=== PATIENT | male | born 1985 | race African-American/Black ===

== ENCOUNTER 2018-07-18 10:51 | Emergency (ER) | payer SELFPAY ==
[2018-07-18 10:57] VITALS: BMI 28.0
--- NOTE | 2018-07-18 11:30 | PDOC ---
*Physical Exam - Vital Signs Last Vital Signs Temp Pulse Resp BP Pulse Ox 98 F 64 18 143/85 100 07/18/18 10:54 07/18/18 10:54 07/18/18 10:54 07/18/18 10:54 07/18/18 10:54 ED Treatment Course - LABORATORY CBC & Chemistry Diagram: 07/18/18 12:00 07/18/18 13:13 Medical Decision Making - Medical Decision Making 07/18/18 11:30 Pt seen by Midlevel Provider under my direct supervision Pt interviewed and examined Ancillary studies reviewed I agree with plan as outlined by Midlevel Provider *DC/Admit/Observation/Transfer Diagnosis at time of Disposition: Chest pain - Discharge Dispostion Disposition: HOME Condition at time of disposition: Improved - Referrals - Patient Instructions Printed Discharge Instructions: DI for Atypical Chest Pain Additional Instructions: If symptoms persist, please follow-up with your PMD Return to ER for worsening of symptoms - Post Discharge Activity
--- NOTE | 2018-07-18 11:36 | PDOC ---
History of Present Illness - General Chief Complaint: Pain Stated Complaint: CHEST PAIN Time Seen by Provider: 07/18/18 11:19 History Source: Patient - History of Present Illness Presenting Symptoms: Chest Pain, Short of Breath Timing/Duration: reports: intermittent Past History - Past Medical History Allergies/Adverse Reactions: Allergies Allergy/AdvReac Type Severity Reaction Status Date / Time No Known Allergies Allergy Verified 07/18/18 10:57 Home Medications: Ambulatory Orders NK [No Known Home Medication] 07/18/18 COPD: No - Surgical History Appendectomy: Yes - Suicide/Smoking/Psychosocial Hx Smoking History: Never smoked Review of Systems - Review of Systems Constitutional: No: Chills, Fever Respiratory: Yes: Shortness of Breath. No: Cough Cardiac (ROS): Yes: Chest Pain, Lightheadedness. No: Palpitations, Syncope ABD/GI: No: Nausea, Vomiting Neurological: Yes: Dizziness. No: Headache, Numbness, Tingling, Weakness *Physical Exam - Vital Signs Last Vital Signs Temp Pulse Resp BP Pulse Ox 98.1 F 61 15 144/84 100 07/18/18 14:54 07/18/18 14:54 07/18/18 14:54 07/18/18 14:54 07/18/18 14:54 - Physical Exam General Appearance: Yes: Appropriately Dressed. No: Apparent Distress HEENT: positive: Normal Voice Neck: positive: Supple, Other (no bruit over carotids) Respiratory/Chest: positive: Lungs Clear, Normal Breath Sounds. negative: Respiratory Distress Cardiovascular: positive: Regular Rate, S1, S2 Gastrointestinal/Abdominal: positive: Soft. negative: Tender Extremity: negative: Pedal Edema Integumentary: positive: Dry, Warm Neurologic: positive: Fully Oriented, Alert, Normal Mood/Affect Heart Score/ECG Review - ECG Intrepretation Rhythm: Regular Rhythm - [place] Comment: 07/18/18 11:38 Possible early repolarization No acute ST/T wave changes - P and NM Prominent R with upright T in V1 (true posterior CO): No Delta Wave(s) Present: No WPW: No ED Treatment Course - LABORATORY CBC & Chemistry Diagram: 07/18/18 12:00 07/18/18 13:13 - ADDITIONAL ORDERS Additional order review: Laboratory Results 07/18/18 07/18/18 07/18/18 13:13 13:13 12:00 Sodium 139 Cancelled Potassium 4.5 Cancelled Chloride 103 Cancelled Carbon Dioxide 32 Cancelled Anion Gap 4 L Cancelled BUN 8 Cancelled Creatinine 1.2 Cancelled Creat Clearance w eGFR > 60 Cancelled Random Glucose 83 Cancelled Calcium 9.6 Cancelled Total Bilirubin 0.6 Cancelled AST 36 Cancelled ALT 68 Cancelled Alkaline Phosphatase 89 Cancelled Creatine Kinase 212 Cancelled Creatine Kinase Index 0.4 CK-MB (CK-2) < 1.00 Troponin I < 0.02 Cancelled Total Protein 8.3 H Cancelled Albumin 4.5 Cancelled 07/18/18 12:00 RBC 4.78 MCV 92.5 MCHC 32.9 RDW 13.0 MPV 10.2 Neutrophils % 50.6 Lymphocytes % 32.6 Monocytes % 14.3 H Eosinophils % 1.4 Basophils % 1.1 - RADIOLOGY Radiology Studies Ordered: Category Date Time Status CHEST PA & LAT [RAD] Stat Radiology 07/18/18 11:27 Taken Medical Decision Making - Medical Decision Making 07/18/18 11:31 33-year-old male, no significant history, here with chest pain. Patient reports that for the past several weeks has had intermittent burning pain to substernal area and left chest, worse with food and sometimes with movement. [facility] 1 week ago he was seen in the ER in [place] where he resides with unremarkable workup. [facility] he has not yet had a chance to see his PMD as he is currently in [place] visiting an aunt. [facility] he decided to come to ED today because over the weekend, felt similar chest pain that appears to be improved. Now complaining of some discomfort to left neck and possibly shortness of breath though. Denies diaphoresis, nausea, vomiting, palpitations , leg pain or swelling, headache, vertigo, visual changes, focal weakness or syncope. No illicit drug use, tob use or significant family history. No obvious RF for DVT/PE. No h/o anxiety See exam CP Recurrent Neg w/u in outside ED 1 week ago in [place] No iilicit drug use, tob use or sig fmhx No RF for DVT/PE ?anxiety component Stable and well thom w/ unremarkable exam -ekg -cxr -labs w/ 1 trop given duration of sxs -anticipate dc w/ cards f/u 07/18/18 15:21 Workup negative in ER. Patient reports feeling better at this time. Well- appearing and stable and currently eating a sandwich. Will discharge to follow- up with his PMD over the next week. Reasons to return to ER discussed with patient *DC/Admit/Observation/Transfer Diagnosis at time of Disposition: Chest pain Qualifiers: Chest pain type: chest pain on breathing Qualified Code(s): R07.1 - Chest pain on breathing; R07.81 - Pleurodynia - Discharge Dispostion Disposition: HOME Condition at time of disposition: Improved - Referrals - Patient Instructions Printed Discharge Instructions: DI for Atypical Chest Pain Additional Instructions: If symptoms persist, please follow-up with your PMD Return to ER for worsening of symptoms - Post Discharge Activity
[2018-07-18 12:04] LABS: BASO % 1.1 % (0-2.0); EOS % 1.4 % (0-4.5); HEMATOCRIT 44.2 % (35.4-49); HEMOGLOBIN 14.6 GM/dL (11.7-16.9); LYMPH % 32.6 % (8-40); MCH 30.5 pg (25.7-33.7); MCHC 32.9 g/dl (32.0-35.9); MEAN CELL VOLUME 92.5 fl (80-96); MEAN PLT VOLUME 10.2 fl (7.5-11.1); MONO % 14.3 % (3.8-10.2); NEUT % 50.6 % (42.8-82.8); PLATELET COUNT 157 K/MM3 (134-434); RBC 4.78 M/mm3 (4.00-5.60); WHITE BLOOD COUNT 3.3 K/mm3 (4.0-10.0)
[2018-07-18 13:59] LABS: ALBUMIN 4.5 g/dl (3.4-5.0); ALK PHOS 89 U/L (45-117); ANION GAP 4 MMOL/L (8-16); BILIRUBIN,TOTAL 0.6 mg/dL (0.2-1.0); BLOOD UREA NITROGEN 8 mg/dL (7-18); CALCIUM 9.6 mg/dL (8.5-10.1); CHLORIDE 103 mmol/L (98-107); CO2 32 mmol/L (21-32); CREATININE 1.2 mg/dL (0.7-1.3); GLUCOSE,RANDOM 83 mg/dL (74-106); POTASSIUM 4.5 mmol/L (3.5-5.1); SGOT/AST 36 U/L (15-37); SGPT/ALT 68 U/L (12-78); SODIUM 139 mmol/L (136-145); TOT PROT 8.3 g/dl (6.4-8.2)
[2018-07-18 14:55] VITALS: PULSE 61; TEMP 98.1
[2018-07-18 15:58] VITALS: BP 135/91
--- NOTE | 2018-07-19 13:46 | EKG ---
Test Reason : Blood Pressure : / mmHG Vent. Rate : 060 BPM Atrial Rate : 060 BPM P-R Int : 156 ms QRS Dur : 084 ms QT Int : 390 ms P-R-T Axes : 041 080 026 degrees QTc Int : 390 ms NORMAL SINUS RHYTHM MINIMAL VOLTAGE CRITERIA FOR LVH, MAY BE NORMAL VARIANT BORDERLINE ECG NO PREVIOUS ECGS AVAILABLE Confirmed by JACLYN SANDERSON MD ([id number]) on 07/19/2018 1:46:33 PM Referred By: Confirmed By:JACLYN SANDERSON MD
== END 2018-07-18 15:57 | disposition home or self-care (01) ==
LOC: JER 10:51
DX: R07.1 Chest pain on breathing (principal); R07.81 Pleurodynia
CPT/HCPCS: 36415; 71046-TC-FY; 80053; 82550; 82553; 84484; 85025; 93005; 93010; 99285-25